=== PATIENT | female | born 1970 | race African-American/Black ===

== ENCOUNTER 2018-08-17 18:05 | Inpatient (IN) | payer MEDICAID ==
[~2018-08-17] VITALS: Ht 165.1 cm; Wt 132.0 kg
[2018-08-17] MEDS ORDERED: AMLO10TA55 PO (18:44)
[2018-08-17] MEDS ORDERED: AMIT50TA3 PO (18:44)
[2018-08-17] MEDS ORDERED: GABA-531 PO (18:44)
[2018-08-17] MEDS ORDERED: OLANZapine 5 MG TABLET PO ONE (19:00)
[2018-08-17 19:14] LABS: BASOPHILS % (AUTO) 1.1 % (0.0-2.0); EOSINOPHILS % (AUTO) 5.2 % (1.0-6.0); HEMATOCRIT 38.7 % (36-46); LYMPHOCYTES # (AUTO) 2.4 K/uL (1.0-4.8); LYMPHOCYTES % (AUTO) 33.5 % (22.0-44.0); MEAN CORPUSCULAR HEMOGLOBIN 29.2 pg (26.0-34.0); MEAN CORPUSCULAR HGB CONC 33.7 G/dL (31.0-37.0); MEAN CORPUSCULAR VOLUME 87 fL (80-100); MONOCYTES # (AUTO) 0.8 K/uL (0.1-1.0); MONOCYTES % (AUTO) 11.6 % (2.0-9.0); NEUTROPHILS # (AUTO) 3.4 K/uL (1.8-7.7); NEUTROPHILS % (AUTO) 48.6 % (40.0-70.0); PLATELET COUNT (AUTO) 384 K/uL (150-450); RED BLOOD CELL COUNT(AUTO) 4.47 MIL/uL (4.00-5.20)
[2018-08-17 19:26] LABS: ANION GAP 4 mmol/L (8-16); CALCIUM, TOTAL 8.9 mg/dL (8.8-10.5); CARBON DIOXIDE 31 mmol/L (22-29); CHLORIDE 103 mmol/L (98-107); CREATININE 0.89 mg/dL (0.60-1.30); GLOMERULAR FILTR. RATE CALC > 60 mL/min (>60); GLUCOSE,RANDOM 106 mg/dL (70-110); POTASSIUM 3.1 mmol/L (3.5-5.1); SODIUM SERUM 138 mmol/L (136-145); UREA NITROGEN, BLOOD 11 mg/dL (7-18)
[2018-08-17] MEDS ORDERED: ZOLPIDEM TARTRATE 10 MG TABLET PO PRN (19:30)
[2018-08-17] MEDS ORDERED: HALOPERIDOL 5 MG TABLET PO PRN (19:30)
[2018-08-17] MEDS ORDERED: HydrOXYzine PAMOATE 50 MG CAPSULE PO PRN (19:30)
[2018-08-17] MEDS ORDERED: HydrOXYzine PAMOATE 50 MG CAPSULE PO ONE (19:30)
[2018-08-17 19:32] LABS: ALANINE AMINOTRANSFERASE 23 U/L (12-78); ALKALINE PHOSPHATASE 109 U/L (46-116); ASPARTATE AMINOTRANSFERASE 14 U/L (15-37); BILIRUBIN,TOTAL 0.2 mg/dL (0.1-1.0); TOTAL PROTEIN, SERUM 7.3 g/dL (6.4-8.2)
[2018-08-17 19:53] LABS: AMPHET/METH SCREEN,URINE NEGATIVE (NEGATIVE); BARBITURATE SCREEN, URINE NEGATIVE (NEGATIVE); BENZODIAZEPINES SCREEN,URINE NEGATIVE (NEGATIVE); CANNABINOID SCREEN,URINE NEGATIVE (NEGATIVE); COCAINE SCREEN,URINE NEGATIVE (NEGATIVE); METHADONE SCREEN, URINE NEGATIVE (NEGATIVE); OPIATE SCREEN,URINE NEGATIVE (NEGATIVE); PHENCYCLIDINE SCREEN,URINE NEGATIVE (NEGATIVE)
[2018-08-17 21:15] VITALS: BP 160/94
[2018-08-17 21:25] LABS: APPEARANCE,URINE CLOUDY (CLEAR); GLUCOSE, URINE (UA) NEGATIVE (NEGATIVE); KETONES,URINE TRACE mg/dL (NEGATIVE); LEUKOCYTE ESTERASE ,URINE SMALL (NEGATIVE); NITRATE,URINE NEGATIVE (NEGATIVE); OCCULT BLOOD,URINE SMALL (NEGATIVE); PH,URINE 5.5 (5.0-8.0); PROTEIN,URINE NEGATIVE (NEGATIVE)
[2018-08-17 21:28] LABS: BILIRUBIN,URINE PRELIM. POSITIVE (NEGATIVE)
[2018-08-17 21:34] LABS: BACTERIA,URINE Few /HPF (None Seen); CALCIUM OXALATE CRYSTALS,UR Moderate /LPF (None Seen); SQUAMOUS EPITHELIAL CELL,UR Many /LPF (None Seen)
[2018-08-17] MEDS ORDERED: ONDANSETRON HCL 4 MG TABLET PO PRN (22:15)
[2018-08-17] MEDS ORDERED: CloNIDine HCL 0.1 MG TABLET PO PRN (22:15)
[2018-08-17] MEDS ORDERED: DOCUSATE SODIUM 100 MG CAPSULE PO PRN (22:15)
[2018-08-17] MEDS ORDERED: ACETAMINOPHEN 325 MG TABLET PO PRN (22:15)
[2018-08-17] MEDS ORDERED: GuaiFENesin/D-METHORPHAN [SUGAR-FREE] 200-20MG/10 ML SYRUP UDCUP PO PRN (22:15)
[2018-08-17] MEDS ORDERED: MAGNESIUM HYDROXIDE SUSPENSION 30 ML UDCUP PO PRN (22:15)
[2018-08-17] MEDS ORDERED: NICOTINE 14 MG/24 HOUR PATCH TD PRN (22:15)
[2018-08-17] MEDS ORDERED: LOPERAMIDE HCL 2 MG CAPSULE PO PRN (22:15)
[2018-08-17] MEDS ORDERED: ALBUTEROL SULFATE HFA 90 MCG/PUFF 8 GM INHALER IH PRN (22:15)
[2018-08-17] MEDS ORDERED: PETROLATUM,WHITE 71 GM JELLY TP PRN (22:15)
[2018-08-17] MEDS ORDERED: MAG HYDROX/AL HYDROX/SIMETH ES 30 ML SUSPENSION UDCUP PO PRN (22:15)
[2018-08-18 06:19] LABS: BASOPHILS % (AUTO) 0.8 % (0.0-2.0); EOSINOPHILS % (AUTO) 4.4 % (1.0-6.0); HEMATOCRIT 40.2 % (36-46); HEMOGLOBIN 13.5 g/dL (12.0-16.0); LYMPHOCYTES # (AUTO) 1.6 K/uL (1.0-4.8); LYMPHOCYTES % (AUTO) 25.5 % (22.0-44.0); MEAN CORPUSCULAR HEMOGLOBIN 29.5 pg (26.0-34.0); MEAN CORPUSCULAR HGB CONC 33.5 G/dL (31.0-37.0); MEAN CORPUSCULAR VOLUME 88 fL (80-100); MONOCYTES # (AUTO) 0.7 K/uL (0.1-1.0); MONOCYTES % (AUTO) 11.2 % (2.0-9.0); NEUTROPHILS # (AUTO) 3.6 K/uL (1.8-7.7); NEUTROPHILS % (AUTO) 58.1 % (40.0-70.0); PLATELET COUNT (AUTO) 368 K/uL (150-450); RED BLOOD CELL COUNT(AUTO) 4.56 MIL/uL (4.00-5.20); RED CELL DISTRIBUTION WIDTH 14.8 % (11.5-14.5)
[2018-08-18 06:47] LABS: HEMOGLOBIN A1C 6.5 % (4.5-6.2)
[2018-08-18 06:50] LABS: ALANINE AMINOTRANSFERASE 24 U/L (12-78); ALBUMIN 2.9 g/dL (3.4-5.0); ALKALINE PHOSPHATASE 88 U/L (46-116); ANION GAP 2 mmol/L (8-16); ASPARTATE AMINOTRANSFERASE 14 U/L (15-37); BILIRUBIN,TOTAL 0.3 mg/dL (0.1-1.0); CALCIUM, TOTAL 8.3 mg/dL (8.8-10.5); CARBON DIOXIDE 32 mmol/L (22-29); CHLORIDE 103 mmol/L (98-107); CHOL/HDL RATIO 3.2 (3.9-5.7); CHOLESTEROL 169 mg/dL (131-200); CREATININE 0.85 mg/dL (0.60-1.30); GLOMERULAR FILTR. RATE CALC > 60 mL/min (>60); GLUCOSE,RANDOM 118 mg/dL (70-110); HDL CHOLESTEROL 53 mg/dL (40-60); LDL CHOL (CALC.) 101 mg/dL (0-130); POTASSIUM 3.8 mmol/L (3.5-5.1); SODIUM SERUM 137 mmol/L (136-145); THYROID STIMULATING HORMONE 1.19 uIU/mL (0.36-3.74); TOTAL PROTEIN, SERUM 6.3 g/dL (6.4-8.2); TRIGLYCERIDES 75 mg/dL (15-150); UREA NITROGEN, BLOOD 9 mg/dL (7-18)
[2018-08-18 08:30] VITALS: BP 138/100
[2018-08-18] MEDS: LISINOPRIL 20 MG TABLET PO SCH (08:40)
[2018-08-18] MEDS: OLANZapine 10 MG TABLET PO SCH ×2 (09:54→20:32)
[2018-08-18] MEDS: IBUPROFEN 400 MG TABLET PO PRN (09:59)
[2018-08-18] MEDS: GABAPENTIN 300 MG CAPSULE PO SCH ×2 (12:49→16:30)
[2018-08-18] MEDS: CEPHALEXIN MONOHYDRATE 500 MG CAPSULE PO SCH (17:24)
[2018-08-18 20:20] VITALS: BP 131/97
[2018-08-18] MEDS: AMITRIPTYLINE HCL 50 MG TABLET PO SCH (20:31)
[2018-08-19] MEDS: CEPHALEXIN MONOHYDRATE 500 MG CAPSULE PO SCH ×4 (00:31→17:11)
[2018-08-19] MEDS: GABAPENTIN 300 MG CAPSULE PO SCH ×3 (08:06→17:09)
[2018-08-19 08:07] VITALS: BP 146/101
[2018-08-19] MEDS: LISINOPRIL 20 MG TABLET PO SCH (08:07)
[2018-08-19] MEDS: IBUPROFEN 400 MG TABLET PO PRN (08:07)
[2018-08-19 08:50] VITALS: BP 146/101
[2018-08-19 09:07] VITALS: BP 138/86
[2018-08-19] MEDS: OLANZapine 10 MG TABLET PO SCH ×2 (09:18→20:47)
[2018-08-19 20:15] VITALS: BP 140/95
[2018-08-19] MEDS: AMITRIPTYLINE HCL 50 MG TABLET PO SCH (20:47)
[2018-08-20 02:45] VITALS: BP 144/81
[2018-08-20] MEDS: IBUPROFEN 400 MG TABLET PO PRN ×4 (02:45→22:02)
[2018-08-20] MEDS: CEPHALEXIN MONOHYDRATE 500 MG CAPSULE PO SCH ×5 (06:00→23:34)
[2018-08-20 09:00] VITALS: BP 151/97
[2018-08-20] MEDS: GABAPENTIN 300 MG CAPSULE PO SCH ×3 (09:01→16:20)
[2018-08-20] MEDS: OLANZapine 10 MG TABLET PO SCH ×2 (09:01→20:30)
[2018-08-20] MEDS: LISINOPRIL 20 MG TABLET PO SCH (09:01)
[2018-08-20 10:03] VITALS: BP 148/92
[2018-08-20 17:19] VITALS: BP 127/84
[2018-08-20] MEDS: AMITRIPTYLINE HCL 50 MG TABLET PO SCH (20:30)
[2018-08-21] MEDS: CEPHALEXIN MONOHYDRATE 500 MG CAPSULE PO SCH ×3 (05:51→18:19)
[2018-08-21 08:00] VITALS: BP 128/89
[2018-08-21] MEDS: IBUPROFEN 400 MG TABLET PO PRN (08:37)
[2018-08-21] MEDS: LISINOPRIL 20 MG TABLET PO SCH (08:37)
[2018-08-21] MEDS: AmLODIPine BESYLATE 5 MG TABLET PO SCH (08:38)
[2018-08-21] MEDS: OLANZapine 10 MG TABLET PO SCH ×2 (08:38→20:56)
[2018-08-21] MEDS: GABAPENTIN 300 MG CAPSULE PO SCH ×3 (08:38→16:17)
[2018-08-21] MEDS: AMITRIPTYLINE HCL 50 MG TABLET PO SCH (20:56)
[2018-08-21 21:33] VITALS: BP 116/66
[2018-08-22 00:02] VITALS: BP 113/61
[2018-08-22] MEDS: IBUPROFEN 400 MG TABLET PO PRN ×2 (00:07→12:54)
[2018-08-22] MEDS: CEPHALEXIN MONOHYDRATE 500 MG CAPSULE PO SCH ×3 (06:20→12:00)
[2018-08-22 08:00] VITALS: BP 141/101
[2018-08-22] MEDS: LISINOPRIL 20 MG TABLET PO SCH (08:47)
[2018-08-22] MEDS: GABAPENTIN 300 MG CAPSULE PO SCH ×2 (08:47→12:45)
[2018-08-22] MEDS: AmLODIPine BESYLATE 5 MG TABLET PO SCH (08:47)
[2018-08-22] MEDS: OLANZapine 10 MG TABLET PO SCH (08:48)
[2018-08-22] MEDS ORDERED: OLAN10TA3 PO (11:20)
[2018-08-22] MEDS ORDERED: AMLO-511 PO (11:21)
[2018-08-22] MEDS ORDERED: CEPH500 PO (11:22)
[2018-08-22] MEDS ORDERED: LISI-662 PO (11:25)
[2018-08-22 12:45] VITALS: BP 134/109
== END 2018-08-22 16:10 | disposition home or self-care (01) | DRG 750 ==
LOC: EMS 18:06 → 3EI 20:00
DX: F25.1 Schizoaffective disorder, depressive type (principal); D57.1 Sickle-cell disease without crisis; F17.210 Nicotine dependence, cigarettes, uncomplicated; I10 Essential (primary) hypertension; J45.909 Unspecified asthma, uncomplicated; F41.9 Anxiety disorder, unspecified; E87.6 Hypokalemia; N39.0 Urinary tract infection, site not specified; M19.90 Unspecified osteoarthritis, unspecified site; R73.03 Prediabetes; L30.9 Dermatitis, unspecified; F99 Mental disorder, not otherwise specified; Z59.0 Homelessness; Z90.710 Acquired absence of both cervix and uterus; Z91.5 Personal history of self-harm
CPT/HCPCS: 83036; 84443; 87086; G0480

== ENCOUNTER 2019-03-22 14:43 | Inpatient (IN) | payer MEDICAID ==
[~2019-03-22] VITALS: Ht 165.1 cm; Wt 127.7 kg
[~2019-03-22 14:43] MED LIST: AMIT50TA3 PO; AMLO-511 PO; CEPH500 PO; GABA-531 PO; LISI-662 PO; OLAN10TA3 PO
[2019-03-22 16:15] LABS: BASOPHILS % (AUTO) 2.1 % (0.0-2.0); EOSINOPHILS % (AUTO) 7.8 % (1.0-6.0); HEMATOCRIT 40.8 % (36-46); HEMOGLOBIN 13.4 g/dL (12.0-16.0); LYMPHOCYTES # (AUTO) 1.3 K/uL (1.0-4.8); LYMPHOCYTES % (AUTO) 26.8 % (22.0-44.0); MEAN CORPUSCULAR HGB CONC 32.8 G/dL (31.0-37.0); MEAN CORPUSCULAR VOLUME 88 fL (80-100); MONOCYTES # (AUTO) 0.8 K/uL (0.1-1.0); MONOCYTES % (AUTO) 16.4 % (2.0-9.0); NEUTROPHILS # (AUTO) 2.3 K/uL (1.8-7.7); NEUTROPHILS % (AUTO) 46.9 % (40.0-70.0); PLATELET COUNT (AUTO) 377 K/uL (150-450); RED BLOOD CELL COUNT(AUTO) 4.62 MIL/uL (4.00-5.20); RED CELL DISTRIBUTION WIDTH 14.5 % (11.5-14.5)
[2019-03-22 16:29] LABS: ANION GAP 5 mmol/L (8-16); CALCIUM, TOTAL 9.2 mg/dL (8.8-10.5); CARBON DIOXIDE 35 mmol/L (22-29); CHLORIDE 101 mmol/L (98-107); CREATININE 1.47 mg/dL (0.60-1.30); GLOMERULAR FILTR. RATE CALC 46 mL/min (>60); GLUCOSE,RANDOM 80 mg/dL (70-110); POTASSIUM 3.1 mmol/L (3.5-5.1); SODIUM SERUM 141 mmol/L (136-145); UREA NITROGEN, BLOOD 24 mg/dL (7-18)
[2019-03-22 16:42] LABS: ALANINE AMINOTRANSFERASE 35 U/L (12-78); ALBUMIN 2.7 g/dL (3.4-5.0); ALKALINE PHOSPHATASE 84 U/L (46-116); ASPARTATE AMINOTRANSFERASE 22 U/L (15-37); BILIRUBIN,TOTAL 0.3 mg/dL (0.1-1.0); HCG,QUANTITATIVE < 1 mIU/mL (0-6); TOTAL PROTEIN, SERUM 6.8 g/dL (6.4-8.2)
[2019-03-22 17:04] LABS: APPEARANCE,URINE TURBID (CLEAR); BILIRUBIN,URINE NEGATIVE (NEGATIVE); GLUCOSE, URINE (UA) NEGATIVE (NEGATIVE); KETONES,URINE NEGATIVE (NEGATIVE); LEUKOCYTE ESTERASE ,URINE MODERATE (NEGATIVE); NITRATE,URINE NEGATIVE (NEGATIVE); OCCULT BLOOD,URINE MODERATE (NEGATIVE); PROTEIN,URINE TRACE (NEGATIVE)
[2019-03-22 17:09] LABS: AMPHET/METH SCREEN,URINE POSITIVE (NEGATIVE); BARBITURATE SCREEN, URINE NEGATIVE (NEGATIVE); BENZODIAZEPINES SCREEN,URINE NEGATIVE (NEGATIVE); CANNABINOID SCREEN,URINE NEGATIVE (NEGATIVE); COCAINE SCREEN,URINE POSITIVE (NEGATIVE); METHADONE SCREEN, URINE NEGATIVE (NEGATIVE); OPIATE SCREEN,URINE NEGATIVE (NEGATIVE)
[2019-03-22 17:10] LABS: PHENCYCLIDINE SCREEN,URINE NEGATIVE (NEGATIVE)
[2019-03-22 17:12] LABS: SQUAMOUS EPITHELIAL CELL,UR Many /LPF (None Seen)
[2019-03-22 17:13] LABS: WBC,URINE 51-100 /HPF (0-5)
[2019-03-22 17:15] LABS: BACTERIA,URINE Moderate /HPF (None Seen)
[2019-03-22] MEDS ORDERED: POTASSIUM CHLORIDE 20 MEQ ER TABLET PO ONE (18:00)
[2019-03-22] MEDS ORDERED: CEPHALEXIN MONOHYDRATE 500 MG CAPSULE PO ONE (18:00)
[2019-03-22] MEDS ORDERED: MECLIZINE HCL 25 MG TABLET PO ONE (20:15)
[2019-03-22] MEDS ORDERED: HALOPERIDOL 5 MG TABLET PO PRN (20:30)
[2019-03-22] MEDS ORDERED: ZOLPIDEM TARTRATE 10 MG TABLET PO PRN (20:30)
[2019-03-22] MEDS ORDERED: LORazepam 2 MG TABLET PO PRN (20:30)
[2019-03-22] MEDS ORDERED: DiphenhydrAMINE HCL 25 MG CAPSULE PO ONE (22:15)
[2019-03-23 07:54] LABS: GLUCOSE,POINT OF CARE 101 MG/DL (70-110)
[2019-03-23 08:09] LABS: FREE T4 (FREE THYROXINE) 1.15 ng/dL (0.76-1.46)
[2019-03-23 08:23] LABS: CHOL/HDL RATIO 4.1 (3.9-5.7)
[2019-03-23 09:18] LABS: POTASSIUM 3.3 mmol/L (3.5-5.1)
[2019-03-23] MEDS ORDERED: POTASSIUM CHLORIDE 20 MEQ ER TABLET PO ONE (11:00)
[2019-03-23] MEDS: OLANZapine 5 MG RAPDIS TABLET PO SCH ×2 (11:14→18:01)
[2019-03-23] MEDS ORDERED: LOPERAMIDE HCL 2 MG CAPSULE PO PRN (12:45)
[2019-03-23] MEDS ORDERED: ALBUTEROL SULFATE HFA 90 MCG/PUFF 8 GM INHALER IH PRN (12:45)
[2019-03-23] MEDS ORDERED: PETROLATUM,WHITE 28 GM JELLY TP PRN (12:45)
[2019-03-23] MEDS ORDERED: NICOTINE 14 MG/24 HOUR PATCH TD PRN (12:45)
[2019-03-23] MEDS ORDERED: GuaiFENesin/D-METHORPHAN [SUGAR-FREE] 200-20MG/10 ML SYRUP UDCUP PO PRN (12:45)
[2019-03-23] MEDS ORDERED: MAG HYDROX/AL HYDROX/SIMETH ES 30 ML SUSPENSION UDCUP PO PRN (12:45)
[2019-03-23] MEDS ORDERED: ONDANSETRON HCL 4 MG TABLET PO PRN (12:45)
[2019-03-23] MEDS ORDERED: IBUPROFEN 400 MG TABLET PO PRN (12:45)
[2019-03-23] MEDS ORDERED: MAGNESIUM HYDROXIDE SUSPENSION 30 ML UDCUP PO PRN (12:45)
[2019-03-23] MEDS ORDERED: CloNIDine HCL 0.1 MG TABLET PO PRN (12:45)
[2019-03-23] MEDS ORDERED: DOCUSATE SODIUM 100 MG CAPSULE PO PRN (12:45)
[2019-03-23 13:42] VITALS: BP 156/102
[2019-03-23] MEDS: GABAPENTIN 300 MG CAPSULE PO SCH ×2 (13:48→18:01)
[2019-03-23 16:00] VITALS: BP 152/93
[2019-03-23] MEDS: CEPHALEXIN MONOHYDRATE 500 MG CAPSULE PO SCH (18:02)
[2019-03-24] MEDS: CEPHALEXIN MONOHYDRATE 500 MG CAPSULE PO SCH ×3 (00:10→16:13)
[2019-03-24 06:30] LABS: HEMOGLOBIN A1C 6.1 % (4.5-6.2)
[2019-03-24 06:36] LABS: POTASSIUM 3.9 mmol/L (3.5-5.1)
[2019-03-24 08:54] VITALS: BP 158/104
[2019-03-24] MEDS: GABAPENTIN 300 MG CAPSULE PO SCH ×3 (08:56→16:13)
[2019-03-24] MEDS: OLANZapine 5 MG RAPDIS TABLET PO SCH ×2 (08:56→16:13)
[2019-03-24] MEDS: AmLODIPine BESYLATE 5 MG TABLET PO SCH (08:56)
[2019-03-24] MEDS: LISINOPRIL 20 MG TABLET PO SCH (08:56)
[2019-03-24 16:28] VITALS: BP 142/98
[2019-03-24 20:21] VITALS: BP 146/89
[2019-03-24] MEDS: ACETAMINOPHEN 325 MG TABLET PO PRN (20:21)
[2019-03-25] MEDS: CEPHALEXIN MONOHYDRATE 500 MG CAPSULE PO SCH ×4 (00:05→23:59)
[2019-03-25] MEDS ORDERED: PNEUMOCOCCAL VACCINE POLYVALENT 0.5 ML VIAL [PPSV23] IM ONE (03:15)
[2019-03-25 09:07] VITALS: BP 149/82
[2019-03-25] MEDS: AmLODIPine BESYLATE 5 MG TABLET PO SCH (09:46)
[2019-03-25] MEDS: OLANZapine 5 MG RAPDIS TABLET PO SCH ×2 (09:46→16:23)
[2019-03-25] MEDS: GABAPENTIN 300 MG CAPSULE PO SCH ×3 (09:46→16:22)
[2019-03-25] MEDS: LISINOPRIL 20 MG TABLET PO SCH (09:46)
[2019-03-25 11:03] VITALS: BP 149/82
[2019-03-25] MEDS: ACETAMINOPHEN 325 MG TABLET PO PRN (11:03)
[2019-03-25 21:38] VITALS: BP 118/78
[2019-03-26 08:37] VITALS: BP 121/67
[2019-03-26] MEDS: LISINOPRIL 20 MG TABLET PO SCH (09:00)
[2019-03-26] MEDS: OLANZapine 5 MG RAPDIS TABLET PO SCH ×2 (09:00→16:45)
[2019-03-26] MEDS: CEPHALEXIN MONOHYDRATE 500 MG CAPSULE PO SCH ×3 (09:00→23:58)
[2019-03-26] MEDS: AmLODIPine BESYLATE 5 MG TABLET PO SCH (09:00)
[2019-03-26] MEDS: GABAPENTIN 300 MG CAPSULE PO SCH ×3 (09:00→16:45)
[2019-03-26 16:45] VITALS: BP 139/87
[2019-03-27] MEDS: LISINOPRIL 20 MG TABLET PO SCH (08:09)
[2019-03-27] MEDS: OLANZapine 5 MG RAPDIS TABLET PO SCH ×2 (08:09→16:34)
[2019-03-27] MEDS: AmLODIPine BESYLATE 5 MG TABLET PO SCH (08:09)
[2019-03-27] MEDS: GABAPENTIN 300 MG CAPSULE PO SCH ×3 (08:09→16:34)
[2019-03-27] MEDS: CEPHALEXIN MONOHYDRATE 500 MG CAPSULE PO SCH ×2 (08:09→16:34)
[2019-03-27 08:34] VITALS: BP 138/75
[2019-03-27 16:00] VITALS: BP 130/82
[2019-03-28] MEDS: CEPHALEXIN MONOHYDRATE 500 MG CAPSULE PO SCH ×3 (00:26→17:32)
[2019-03-28] MEDS: AmLODIPine BESYLATE 5 MG TABLET PO SCH (08:07)
[2019-03-28] MEDS: OLANZapine 5 MG RAPDIS TABLET PO SCH ×2 (08:07→17:32)
[2019-03-28] MEDS: GABAPENTIN 300 MG CAPSULE PO SCH ×3 (08:07→17:32)
[2019-03-28] MEDS: LISINOPRIL 20 MG TABLET PO SCH (08:07)
[2019-03-28 09:45] VITALS: BP 122/78
[2019-03-28 17:05] VITALS: BP 118/80
[2019-03-29] MEDS: CEPHALEXIN MONOHYDRATE 500 MG CAPSULE PO SCH ×2 (00:13→08:22)
[2019-03-29] MEDS: LISINOPRIL 20 MG TABLET PO SCH (08:22)
[2019-03-29] MEDS: GABAPENTIN 300 MG CAPSULE PO SCH ×2 (08:22→13:30)
[2019-03-29] MEDS: AmLODIPine BESYLATE 5 MG TABLET PO SCH (08:22)
[2019-03-29] MEDS: OLANZapine 5 MG RAPDIS TABLET PO SCH (08:22)
[2019-03-29 09:53] VITALS: BP 140/75
[2019-03-29] MEDS ORDERED: OLAN5TAB2 PO (12:45)
[2019-03-29] MEDS ORDERED: AMLO-511 PO (12:52)
[2019-03-29] MEDS ORDERED: CEPH500 PO (12:53)
[2019-03-29] MEDS ORDERED: LISI-662 PO (12:54)
[2019-03-29] MEDS ORDERED: OLAN5TAB40 PO (13:43)
== END 2019-03-29 15:30 | disposition home or self-care (01) | DRG 750 ==
LOC: EMS 14:45 → 3EC 03-23 08:56
PROVIDERS: ADMIT Psychiatry & Neurology Child & Adolescent Psychiatry; ATTEND Psychiatry & Neurology Child & Adolescent Psychiatry
DX: F25.1 Schizoaffective disorder, depressive type (principal); D57.1 Sickle-cell disease without crisis; E87.6 Hypokalemia; I10 Essential (primary) hypertension; J45.909 Unspecified asthma, uncomplicated; N39.0 Urinary tract infection, site not specified; Z87.891 Personal history of nicotine dependence; Z90.710 Acquired absence of both cervix and uterus; Z28.21 Immunization not carried out because of patient refusal
CPT/HCPCS: 83036; 84132; 84436; 84439; 87086; 93005; G0480

== ENCOUNTER 2023-05-22 23:38 | Inpatient (IN) | payer OTHER ==
[~2023-05-22] VITALS: Ht 162.6 cm; Wt 74.7 kg
[~2023-05-22 23:38] MED LIST changes: -AMIT50TA3 PO; +AMLO-257 PO; -AMLO-511 PO; +CEPH-558 PO; -CEPH500 PO; -LISI-662 PO; +LISI-894 PO; -OLAN10TA3 PO; +OLAN5TAB94 PO
[2023-05-22] MEDS ORDERED: LABETALOL HCL 5 MG/ML 20 ML VIAL IVP PRN (23:45)
[2023-05-23 00:05] LABS: BASOPHILS % (AUTO) 0.9 % (0.0-2.0); EOSINOPHILS % (AUTO) 2.3 % (1.0-6.0); HEMATOCRIT 33.7 % (36-46); HEMOGLOBIN 11.3 g/dL (12.0-16.0); LYMPHOCYTES # (AUTO) 1.9 K/uL (1.0-4.8); LYMPHOCYTES % (AUTO) 28.6 % (22.0-44.0); MEAN CORPUSCULAR HEMOGLOBIN 29.8 pg (26.0-34.0); MEAN CORPUSCULAR HGB CONC 33.4 G/dL (31.0-37.0); MEAN CORPUSCULAR VOLUME 89 fL (80-100); MONOCYTES # (AUTO) 0.7 K/uL (0.1-1.0); MONOCYTES % (AUTO) 10.9 % (2.0-9.0); NEUTROPHILS # (AUTO) 3.8 K/uL (1.8-7.7); NEUTROPHILS % (AUTO) 57.3 % (40.0-70.0); PLATELET COUNT (AUTO) 319 K/uL (150-450); RED BLOOD CELL COUNT(AUTO) 3.77 MIL/uL (4.00-5.20); RED CELL DISTRIBUTION WIDTH 13.8 % (11.5-14.5)
[2023-05-23] MEDS: LABETALOL HCL 5 MG/ML 20 ML VIAL IVP PRN ×2 (00:09→01:03)
[2023-05-23 00:19] LABS: PROTHROMBIN TIME 10.3 SEC (9.4-11.6)
[2023-05-23 00:21] LABS: ALBUMIN 2.8 g/dL (3.4-5.0); BILIRUBIN,TOTAL 0.3 mg/dL (0.1-1.0); CALCIUM, TOTAL 8.7 mg/dL (8.8-10.5); CREATININE 1.85 mg/dL (0.60-1.30); TOTAL PROTEIN, SERUM 6.3 g/dL (6.4-8.2)
[2023-05-23 00:25] LABS: POTASSIUM 2.5 mmol/L (3.5-5.1)
[2023-05-23 00:26] LABS: B-TYPE NATRIURETIC PEPTIDE 113 pg/mL (0-100)
[2023-05-23] MEDS ORDERED: POTASSIUM CHL 10 MEQ/WATER 50 ML IV ONE (00:30)
[2023-05-23] MEDS ORDERED: POTASSIUM CHLORIDE 20 MEQ ER TABLET PO ONE (00:30)
[2023-05-23] MEDS ORDERED: ACETAMINOPHEN 325 MG TABLET PO PRN (01:15)
[2023-05-23] MEDS ORDERED: ONDANSETRON HCL 4 MG/2 ML VIAL IVP PRN (01:15)
[2023-05-23] MEDS ORDERED: MIDAZOLAM HCL 2 MG/2 ML VIAL IVP ONE (01:45)
[2023-05-23] MEDS: NiCARDipine HCL 25 MG in SODIUM CHLORIDE 0.9% 240 ML IV PRN ×4 (01:49→13:03)
[2023-05-23 01:53] LABS: MAGNESIUM 1.8 mg/dL (1.80-2.40); PHOSPHORUS 4.3 mg/dL (2.5-4.9)
[2023-05-23 02:50] LABS: COVID AG,FIA SOURCE NASOPHARYNGEAL
[2023-05-23 03:41] LABS: INFLUENZA TYPE A NEGATIVE FOR TYPE A (NEGATIVE); INFLUENZA TYPE B NEGATIVE FOR TYPE B (NEGATIVE)
[2023-05-23 04:46] LABS: APPEARANCE,URINE CLEAR (CLEAR); BILIRUBIN,URINE NEGATIVE (NEGATIVE); GLUCOSE, URINE (UA) NEGATIVE (NEGATIVE); KETONES,URINE NEGATIVE (NEGATIVE); LEUKOCYTE ESTERASE ,URINE NEGATIVE (NEGATIVE); NITRATE,URINE NEGATIVE (NEGATIVE); OCCULT BLOOD,URINE NEGATIVE (NEGATIVE); PROTEIN,URINE NEGATIVE (NEGATIVE); SPECIFIC GRAVITIY, URINE 1.013 (1.003-1.030); UROBILINOGEN,URINE <=1.0 mg/dL (<=1.0)
[2023-05-23 04:48] LABS: CREATININE,URINE RANDOM 21.6 mg/dL (30.0-125.0)
[2023-05-23 04:53] LABS: AMPHET/METH SCREEN,URINE NEGATIVE (NEGATIVE); BARBITURATE SCREEN, URINE NEGATIVE (NEGATIVE); BENZODIAZEPINES SCREEN,URINE POSITIVE (NEGATIVE); CANNABINOID SCREEN,URINE NEGATIVE (NEGATIVE); COCAINE SCREEN,URINE POSITIVE (NEGATIVE); METHADONE SCREEN, URINE NEGATIVE (NEGATIVE); OPIATE SCREEN,URINE NEGATIVE (NEGATIVE); PHENCYCLIDINE SCREEN,URINE NEGATIVE (NEGATIVE)
[2023-05-23] MEDS ORDERED: DIAZEPAM 5 MG/ML 2 ML SYRINGE IVP ONE (05:00)
[2023-05-23 06:00] LABS: BASOPHILS % (AUTO) 0.9 % (0.0-2.0); EOSINOPHILS % (AUTO) 3.1 % (1.0-6.0); HEMATOCRIT 39.5 % (36-46); HEMOGLOBIN 13.4 g/dL (12.0-16.0); LYMPHOCYTES # (AUTO) 1.5 K/uL (1.0-4.8); LYMPHOCYTES % (AUTO) 25.4 % (22.0-44.0); MEAN CORPUSCULAR HGB CONC 33.9 G/dL (31.0-37.0); MEAN CORPUSCULAR VOLUME 89 fL (80-100); MONOCYTES # (AUTO) 0.5 K/uL (0.1-1.0); MONOCYTES % (AUTO) 9.1 % (2.0-9.0); NEUTROPHILS # (AUTO) 3.7 K/uL (1.8-7.7); NEUTROPHILS % (AUTO) 61.5 % (40.0-70.0); PLATELET COUNT (AUTO) 361 K/uL (150-450); RED BLOOD CELL COUNT(AUTO) 4.46 MIL/uL (4.00-5.20)
[2023-05-23 06:10] LABS: CALCIUM, TOTAL 9.1 mg/dL (8.8-10.5); CREATININE 1.63 mg/dL (0.60-1.30)
[2023-05-23 06:22] LABS: POTASSIUM 2.6 mmol/L (3.5-5.1)
[2023-05-23] MEDS: HEPARIN SODIUM,PORCINE 5,000 UNITS/ML VIAL SQ SCH ×2 (07:32→16:39)
[2023-05-23] MEDS: POTASSIUM CHL 10 MEQ/WATER 50 ML IV PRN ×7 (07:33→16:39)
[2023-05-23] MEDS: DOCUSATE SODIUM 100 MG CAPSULE PO SCH ×2 (09:09→21:00)
[2023-05-23] MEDS: ASPIRIN 81 MG CHEWABLE TABLET PO SCH (09:09)
[2023-05-23] MEDS: ATORVASTATIN CALCIUM 20 MG TABLET PO SCH (09:10)
[2023-05-23 12:21] LABS: ALBUMIN 2.9 g/dL (3.4-5.0); BILIRUBIN,TOTAL 0.4 mg/dL (0.1-1.0); CALCIUM, TOTAL 8.5 mg/dL (8.8-10.5); CREATININE 1.41 mg/dL (0.60-1.30); TOTAL PROTEIN, SERUM 6.9 g/dL (6.4-8.2)
[2023-05-23 12:33] LABS: POTASSIUM 2.7 mmol/L (3.5-5.1)
[2023-05-23 19:04] LABS: CALCIUM, TOTAL 8.4 mg/dL (8.8-10.5); CREATININE 1.44 mg/dL (0.60-1.30)
[2023-05-23 19:10] LABS: ALBUMIN 2.7 g/dL (3.4-5.0); BILIRUBIN,TOTAL 0.2 mg/dL (0.1-1.0); TOTAL PROTEIN, SERUM 6.6 g/dL (6.4-8.2)
[2023-05-23] MEDS: HALOPERIDOL 5 MG TABLET PO PRN (19:52)
[2023-05-23] MEDS ORDERED: LABETALOL HCL 100 MG TABLET PO ONE (21:00)
[2023-05-23 22:12] VITALS: BP 142/76; PULSE 66; RESP 19; TEMP 97.6
[2023-05-23] MEDS: POTASSIUM CHLORIDE 20 MEQ ER TABLET PO PRN (22:41)
[2023-05-24] MEDS: HEPARIN SODIUM,PORCINE 5,000 UNITS/ML VIAL SQ SCH ×3 (00:33→16:00)
[2023-05-24 03:45] VITALS: BP 136/79; PULSE 65; RESP 20; TEMP 97.5
[2023-05-24] MEDS: HALOPERIDOL 5 MG TABLET PO PRN (04:25)
[2023-05-24] MEDS: POTASSIUM CHL 10 MEQ/WATER 50 ML IV PRN ×2 (06:44→09:07)
[2023-05-24] MEDS ORDERED: SODIUM CHLORIDE 0.9% 500 ML IV ONE (06:47)
[2023-05-24] MEDS: DOCUSATE SODIUM 100 MG CAPSULE PO SCH ×2 (08:17→20:17)
[2023-05-24] MEDS: ASPIRIN 81 MG CHEWABLE TABLET PO SCH (08:17)
[2023-05-24] MEDS: ATORVASTATIN CALCIUM 20 MG TABLET PO SCH (08:18)
[2023-05-24] MEDS: LABETALOL HCL 100 MG TABLET PO SCH ×2 (08:19→20:17)
[2023-05-24 15:48] VITALS: BP 194/90; PULSE 60; RESP 18; TEMP 98.7
[2023-05-24] MEDS: POTASSIUM CHLORIDE 20 MEQ ER TABLET PO PRN (15:59)
[2023-05-24 21:20] VITALS: BP 132/57; PULSE 66; RESP 24; TEMP 98.3
[2023-05-25 08:20] VITALS: BP 131/62; PULSE 71; RESP 20; TEMP 98.7
[2023-05-25] MEDS: DOCUSATE SODIUM 100 MG CAPSULE PO SCH (09:02)
[2023-05-25] MEDS: LABETALOL HCL 100 MG TABLET PO SCH (09:02)
[2023-05-25] MEDS: ASPIRIN 81 MG CHEWABLE TABLET PO SCH (09:02)
[2023-05-25] MEDS: ATORVASTATIN CALCIUM 20 MG TABLET PO SCH (09:02)
[2023-05-25] MEDS: HEPARIN SODIUM,PORCINE 5,000 UNITS/ML VIAL SQ SCH ×2 (09:03)
== END 2023-05-25 11:10 | disposition home or self-care (01) | DRG 199 ==
LOC: EMS 23:39 → 5S 05-23 21:40
PROVIDERS: ADMIT Internal Medicine; ATTEND Internal Medicine
DX: I16.1 Hypertensive emergency (principal); G92.9 Unspecified toxic encephalopathy; N17.9 Acute kidney failure, unspecified; E87.6 Hypokalemia; F14.90 Cocaine use, unspecified, uncomplicated; F20.9 Schizophrenia, unspecified; J45.909 Unspecified asthma, uncomplicated; Z20.822 Contact with and (suspected) exposure to COVID-19; I10 Essential (primary) hypertension; I69.928 Other speech and language deficits following unspecified cerebrovascular disease; Z88.8 Allergy status to other drugs, medicaments and biological substances; Z90.710 Acquired absence of both cervix and uterus; Z98.51 Tubal ligation status; Z87.891 Personal history of nicotine dependence; Z91.148 Patient's other noncompliance with medication regimen for other reason; Y92.89 Other specified places as the place of occurrence of the external cause
CPT/HCPCS: 70496; 70498; 71045; 80048; 80053; 80307; 81003; 82570; 82948; 83735; 83880; 84100; 84132; 84300; 84484; 85025; 85610; 85730; 86850; 86900; 86901; 87804; 92610; 93005; 97166; 97535; 99291; G0480; J1644; J2250; J3480; J3490; J7040; J7050; 36415-L1; 36415-TC; 70450; 70450-TC